=== PATIENT | female | born 1955 | race Caucasian/White ===

== ENCOUNTER 2021-04-20 01:16 | Emergency (ER) | payer OTHER ==
[2021-04-20] MEDS ORDERED: diphenhydrAMINE 50 MG/ML VIAL ONE (03:10)
[2021-04-20] MEDS ORDERED: Prochlorperazine 10 MG/2 ML VIAL ONE (03:10)
[2021-04-20 04:17] LABS: #Basophils 0.1 thou/uL (0.0-0.2); #Eosinphils 0.1 thou/uL (0.0-0.7); #Lymphocytes 1.7 thou/uL (1.20-3.40); #Monocytes 1.2 thou/uL (0.11-0.59); #Neutrophils 7.3 thou/uL (1.40-6.50); %Basophils 0.7 % (0.0-1.0); %Eosinophils 0.6 % (0.0-10.0); %Lymphocytes 16.7 % (21.0-51.0); %Monocytes 11.8 % (0.0-10.0); %Neutrophils 70.1 % (42.0-75.0); ALT (SGPT) Less than 7 U/L (8-55); AST (SGOT) 14 U/L (5-34); Alkaline Phosphatase 48 U/L (40-110); Anion Gap 11 mmol/L (10-20); BUN (Urea Nitrogen) 11 mg/dL (9.8-20.1); Bilirubin, Total 0.3 mg/dL (0.2-1.2); Calc. Creatinine Clearance 0 mL/min (70-130); Calcium 9.3 mg/dL (7.8-10.44); Carbon Dioxide 28 mmol/L (23-31); Chloride 97 mmol/L (98-107); Globulin 3.7 g/dL (2.4-3.5); Glucose 74 mg/dL (80-115); Hemoglobin 13.4 g/dL (12.0-16.0); MDiff Complete? YES; Macrocytosis SLIGHT = 6-15 cells (100X) (0-5/hpf); Mean Corpuscular HGB CONC 32.6 g/dL (32.0-36.0); Mean Corpuscular Hemoglobin 34.8 pg (27.0-31.0); Mean Platelet Volume 7.2 fL (7.4-10.4); Platelet Count 199 thou/uL (130-400); Protein, Total 7.7 g/dL (5.8-8.1); RBC Distribution Width 12.1 % (11.5-14.5); Red Blood Cell (RBC) Count 3.85 mill/uL (4.20-5.40); Sodium 132 mmol/L (136-145); White Blood Cell (WBC) Count 10.4 thou/uL (4.8-10.8)
== END 2021-04-20 06:46 ==
LOC: ERS 01:16
DX: R51.9 Headache, unspecified (principal); R05.9 Cough, unspecified; I10 Essential (primary) hypertension; I25.10 Atherosclerotic heart disease of native coronary artery without angina pectoris; M19.90 Unspecified osteoarthritis, unspecified site; K21.9 Gastro-esophageal reflux disease without esophagitis; Z87.19 Personal history of other diseases of the digestive system; Z79.899 Other long term (current) drug therapy
CPT/HCPCS: 71045; 80053; 83880; 85025; 93005; 96374; 96375; J0780; J1200

== ENCOUNTER 2021-08-04 00:50 | Emergency (ER) | payer MEDICARE, MEDICAID ==
[2021-08-04] MEDS ORDERED: Acetaminophen 500 MG TAB ONE (01:46)
== END 2021-08-04 03:23 ==
LOC: ERS 00:50
DX: S32.592A Other specified fracture of left pubis, initial encounter for closed fracture (principal); S32.029A Unspecified fracture of second lumbar vertebra, initial encounter for closed fracture; I10 Essential (primary) hypertension; I25.10 Atherosclerotic heart disease of native coronary artery without angina pectoris; K21.9 Gastro-esophageal reflux disease without esophagitis; M19.90 Unspecified osteoarthritis, unspecified site; W18.30XA Fall on same level, unspecified, initial encounter; Y92.129 Unspecified place in nursing home as the place of occurrence of the external cause; Z87.19 Personal history of other diseases of the digestive system; Z79.899 Other long term (current) drug therapy
CPT/HCPCS: 72131; 72192; 93005

== ENCOUNTER 2022-04-07 21:26 | Observation (INO) | payer MEDICARE, MEDICAID ==
[2022-04-07] MEDS ORDERED: diphenhydrAMINE 50 MG/ML VIAL ONE (22:09)
[2022-04-07] MEDS ORDERED: Acetaminophen 500 MG TAB ONE (22:09)
[2022-04-07] MEDS ORDERED: Magnesium 2 GM/50 ML BAG (IN WATER) ONE (22:09)
[2022-04-07] MEDS ORDERED: Prochlorperazine 10 MG/2 ML VIAL ONE (22:09)
[2022-04-07 22:16] LABS: #Lymphocytes 2.2 thou/uL (1.20-3.40); #Monocytes 0.7 thou/uL (0.11-0.59); #Neutrophils 3.9 thou/uL (1.40-6.50); %Basophils 0.4 % (0.0-1.0); %Eosinophils 0.3 % (0.0-10.0); %Monocytes 10.4 % (0.0-10.0); %Neutrophils 56.8 % (42.0-75.0); Hemoglobin 13.6 g/dL (12.0-16.0); Mean Corpuscular HGB CONC 33.8 g/dL (32.0-36.0); Mean Corpuscular Hemoglobin 35.7 pg (27.0-31.0); Mean Platelet Volume 8.6 fL (7.4-10.4); Platelet Count 197 10x3/uL (130-400); RBC Distribution Width 13.4 % (11.5-14.5); Red Blood Cell (RBC) Count 3.81 mill/uL (4.20-5.40); White Blood Cell (WBC) Count 6.9 10x3/uL (4.8-10.8)
[2022-04-08 00:48] LABS: Bilirubin Negative (Negative); Blood, Urine Trace (Negative); Clarity Clear (Clear); Glucose, Urine (Dipstick) Normal (Negative); Ketone, Urine Negative (Negative); Leukocyte 25 Leu/uL (Negative); Nitrite Negative (Negative); Protein, Urine (Dipstick) Negative (Neg-Trace); Specific Gravity, Urine 1.011 (1.002-1.036); Squamous Epithelial 0-3 HPF (0-3); Urobilinogen Normal mg/dL (Less than 2)
[2022-04-08 00:56] LABS: Bacteria/HPF 1+ HPF (None Seen)
[2022-04-08 01:39] LABS: Chloride 106 mmol/L (98-107); Potassium 4.3 mmol/L (3.5-5.1); Sodium 136 mmol/L (136-145)
[2022-04-08 01:40] LABS: Calcium 8.8 mg/dL (7.8-10.44); Glucose 72 mg/dL (80-115)
[2022-04-08 01:42] LABS: Anion Gap 11 mmol/L (10-20); Carbon Dioxide 23 mmol/L (23-31)
[2022-04-08 01:44] LABS: BUN (Urea Nitrogen) 12 mg/dL (9.8-20.1); Calc. Creatinine Clearance 0 mL/min (70-130); Estimated GFR 89
[2022-04-08] MEDS ORDERED: Morphine 4 MG/ML VIAL ONE (02:08)
[2022-04-08] MEDS ORDERED: Ondansetron PF 4 MG/2 ML Vial IVP PRN (03:51)
[2022-04-08] MEDS ORDERED: Nitroglycerin 0.4 MG TAB (25 Tab Bottle) SL PRN (03:52)
[2022-04-08] MEDS ORDERED: Dextrose 50% Abboject 50 ML SYRINGE SLOW IVP PRN (04:33)
[2022-04-08 05:32] LABS: Troponin I Less than 0.010 ng/mL (< 0.028)
[2022-04-08] MEDS ORDERED: Acetaminophen 325 MG TAB ONE (06:35)
[2022-04-08] MEDS: Acetaminophen 325 MG TAB PO PRN ×2 (06:37→21:53)
[2022-04-08 07:10] LABS: Troponin I 0.017 ng/mL (< 0.028)
[2022-04-08 07:54] LABS: SARS-CoV-2 NAA Rapid Test Not Detected (NotDetected)
[2022-04-08] MEDS: Dextrose 5% in Water 1,000 ML IV PRN ×2 (08:56→18:19)
[2022-04-08 12:49] LABS: Troponin I Less than 0.010 ng/mL (< 0.028)
[2022-04-08 15:48] LABS: Troponin I Less than 0.010 ng/mL (< 0.028)
[2022-04-08] MEDS ORDERED: Morphine 2 MG/ML VIAL ONE (17:45)
[2022-04-08] MEDS: Morphine 4 MG/ML VIAL SLOW IVP PRN ×2 (17:48→23:56)
[2022-04-08 21:36] VITALS: BMI 25.5
[2022-04-08] MEDS ORDERED: Lisinopril 10 MG TAB PO SCH (22:30)
[2022-04-08] MEDS ORDERED: Metoprolol Tartrate 50 MG TAB PO SCH (22:30)
[2022-04-08] MEDS: Dextrose 5 %-0.45 % NaCl 1,000 ML IV SCH (23:02)
[2022-04-09] MEDS ORDERED: diphenhydrAMINE 50 MG/ML VIAL IVP SCH (00:45)
[2022-04-09] MEDS: Morphine 4 MG/ML VIAL SLOW IVP PRN ×2 (06:03→12:23)
[2022-04-09 07:53] LABS: Hemoglobin 12.7 g/dL (12.0-16.0); Mean Corpuscular HGB CONC 32.9 g/dL (32.0-36.0); Mean Platelet Volume 8.8 fL (7.4-10.4); Platelet Count 191 10x3/uL (130-400); RBC Distribution Width 13.4 % (11.5-14.5); Red Blood Cell (RBC) Count 3.63 mill/uL (4.20-5.40); White Blood Cell (WBC) Count 7.9 10x3/uL (4.8-10.8)
[2022-04-09 08:07] LABS: Anion Gap 14 mmol/L (10-20); BUN (Urea Nitrogen) 10 mg/dL (9.8-20.1); Calc. Creatinine Clearance 81 mL/min (70-130); Carbon Dioxide 23 mmol/L (23-31); Chloride 102 mmol/L (98-107); Estimated GFR 88; Glucose 73 mg/dL (80-115); Potassium 4.9 mmol/L (3.5-5.1); Sodium 134 mmol/L (136-145)
[2022-04-09] MEDS ORDERED: Lisinopril 10 MG TAB PO SCH (09:00)
[2022-04-09] MEDS ORDERED: Aspirin 81 mg Enteric Coated Tablet PO SCH (09:00)
[2022-04-09] MEDS ORDERED: Atorvastatin Calcium 20 MG TAB PO SCH (09:00)
[2022-04-09] MEDS ORDERED: Metoprolol Tartrate 50 MG TAB PO SCH (09:00)
[2022-04-09 11:28] LABS: Band 6 % (5-11); Eosinophils 2 % (0-10); Lymphocytes 26 % (21-51); MDiff Complete? YES; Monocytes 12 % (0-10); Neutrophil 54 % (42-75); RBC Morphology Normal
[2022-04-09] MEDS: Dextrose 5 %-0.45 % NaCl 1,000 ML IV SCH (12:29)
[2022-04-09] MEDS: Acetaminophen 325 MG TAB PO PRN (14:57)
[2022-04-09 17:21] VITALS: TEMP 97.6
[2022-04-09 17:23] VITALS: BP 111/66
== END 2022-04-09 18:10 ==
LOC: ERS 21:26 → ERHOLD 04-08 02:51 → 2NO 04-08 20:55
PROVIDERS: ADMIT Internal Medicine; ATTEND Internal Medicine
DX: R07.89 Other chest pain (principal); I25.10 Atherosclerotic heart disease of native coronary artery without angina pectoris; I10 Essential (primary) hypertension; K21.9 Gastro-esophageal reflux disease without esophagitis; G25.81 Restless legs syndrome; G89.4 Chronic pain syndrome; M19.90 Unspecified osteoarthritis, unspecified site; H61.21 Impacted cerumen, right ear; E78.5 Hyperlipidemia, unspecified; Z79.02 Long term (current) use of antithrombotics/antiplatelets; Z79.82 Long term (current) use of aspirin; Z79.899 Other long term (current) drug therapy; Z88.8 Allergy status to other drugs, medicaments and biological substances; Z91.041 Radiographic dye allergy status; Z95.5 Presence of coronary angioplasty implant and graft; Z20.822 Contact with and (suspected) exposure to COVID-19
CPT/HCPCS: 70450; 71045; 80048 ×2; 82962 ×2; 83690; 84484 ×3; 85025 ×2; 87086; 93005; 96365; 96375; 96376 ×3; 99285; G0378 ×3; U0002; 36415; 36416; 81003; 81015; J0780; J1200; J2270; J2272; J3475; J7042; J7070